=== PATIENT | female | born 1945 | race Caucasian/White ===

== ENCOUNTER → 2016-10-17 | Outpatient (CLI) | payer OTHER ==
[~2016-10-17] MED LIST: HYZAAR 12.5 MG-1 TAB PO; IRON325 M1 PO; PERCOCET 325 MG1 TA2 PO; PRILOSEC20 M2 PO; TEKTURNA300 MG PO; XANAX0.25 MG PO
== END ==
LOC: RAD 14:56
DX: R05 Cough (principal); K44.9 Diaphragmatic hernia without obstruction or gangrene; Z76.89 Persons encountering health services in other specified circumstances

== ENCOUNTER 2017-03-07 17:42 | Emergency (ER) | payer OTHER ==
[~2017-03-07] VITALS: Wt 112.5 kg
[2017-03-07 18:41] LABS: BILIRUBIN NEGATIVE (NEGATIVE); BLOOD NEGATIVE (NEGATIVE); CLARITY SL CLOUDY (CLEAR); COLOR YELLOW (YELLOW); GLUCOSE NEGATIVE (NEGATIVE); KETONE NEGATIVE (NEGATIVE); LEUKO ESTERASE NEGATIVE (NEGATIVE); NITRITE NEGATIVE (NEGATIVE); SPECIFIC GRAVITY 1.015 (1.005-1.030); UROBILINOGEN 0.2 E.U./dl (0.2-1.0)
[2017-03-07 18:46] LABS: BACTERIA 2+
[2017-03-07 18:53] LABS: HEMATOCRIT 29.8 % (37.0-47.0); HEMOGLOBIN 9.1 g/dl (12.0-16.0); MEAN CELL VOLUME 78.2 fl (81.0-99.0); MEAN CORPUSCULAR HGB 23.9 pg (27.0-31.0); MEAN CORPUSCULAR HGB CONC 30.5 g/dl (33.0-37.0); MEAN PLATELET VOLUME 10.8 fl (9.6-12.3); PLATELET COUNT AUTOMATED 357 10*3/uL (130-400); RED BLOOD COUNT 3.81 10*6/uL (4.10-5.10); RED CELL DISTRI WIDTH 14.8 % (0-14.5); WHITE BLOOD COUNT 26.4 10*3/uL (4.8-10.8)
[2017-03-07 19:03] LABS: ACT PARTIAL THROMBO TIME 22.2 SECONDS (20.8-31.5)
[2017-03-07 19:07] LABS: ALBUMIN 3.9 gm/dl (3.1-4.5); ALKALINE PHOSPHATASE 90 U/L (45-117); BUN 39 mg/dl (7-24); CHLORIDE 99 mmol/L (98-107); CREATININE 1.17 mg/dL (0.55-1.02); LIPASE 139 U/L (73-393); MAGNESIUM 2.1 mg/dL (1.5-2.1); POTASSIUM 3.5 mmol/L (3.5-5.1); SGOT/AST 17 IU/L (3-35); SGPT/ALT 33 U/L (12-78); SODIUM 139 mmol/L (136-145); TOTAL PROTEIN 6.9 gm/dL (6.4-8.2)
[2017-03-07 19:08] LABS: TROPONIN I < 0.015 ng/ml (<0.045)
[2017-03-07 19:23] LABS: BASOPHILS 3 % (0-1); TOTAL CELLS COUNTED 100 #CELLS
[2017-03-07 19:25] LABS: POLYCHROMASIA SLIGHT
[2017-03-07 19:26] LABS: MICROCYTOSIS SLIGHT; OVALOCYTES FEW; PLATELET SUFFICIENCY NORMAL (NORMAL)
== END 2017-03-07 19:51 | disposition home or self-care (01) ==
LOC: ED 17:42
PROVIDERS: Emergency Medicine
DX: R06.02 Shortness of breath (principal); Z96.653 Presence of artificial knee joint, bilateral; Z90.710 Acquired absence of both cervix and uterus

== ENCOUNTER → 2017-03-07 | Outpatient (CLI) | payer OTHER | END | disposition home or self-care (01) | LOC: RAD 12:35 | DX: R06.02 Shortness of breath (principal); R07.89 Other chest pain; I10 Essential (primary) hypertension; K44.9 Diaphragmatic hernia without obstruction or gangrene ==

== ENCOUNTER 2017-03-15 17:01 | Inpatient (IN) | payer OTHER ==
[2017-03-15] VITALS (8 sets, daily range): BP systolic 110–147; BP diastolic 39–67
[~2017-03-15] VITALS: Ht 172.7 cm; Wt 112.9 kg
--- NOTE | ~2017-03-15 | PR ---
[place], [place] PROGRESS NOTE NAME: [id number] UNIT #: [id number] ROOM: 521 DOCTOR: JO ANN CARABALLO,RICKY BIRTHDATE: [birth year] DOS: SUBJECTIVE: The patient is sitting up in bed, does not appear to have any cardiac complaint. There is no symptomatic palpitation. Reported runs of atrial fibrillation, rhythm strips were reviewed today and appear to be within normal sinus rhythm with frequent PVCs only. Heart rate with no significant change with those rhythm strips. The patient otherwise ____ well and she is awaiting a stress test in a.m. OBJECTIVE: VITAL SIGNS: Blood pressure ____, heart rate 79, respiratory rate of 14, temperature 97.8. NECK: Good upstroke. No bruit. HEART: S1, S2 with no rub. LUNGS: Clear to auscultation, slight decrease in air movement. LOWER EXTREMITIES: No significant edema. LABORATORY DATA: White count 24.5, hemoglobin 9.5. INR 1.0. Potassium 3.7. ASSESSMENT AND PLAN: Current presentation with shortness of breath and bilateral lower extremity edema in a patient with history of congestive heart failure, chronic lymphocytic leukemia. The patient had an echocardiogram, which showed normal left ventricular function with ejection fraction 60% with criteria for left ventricular hypertrophy. The patient is awaiting a stress test in a.m. with Dr. Moore. In regards to her rhythm strips which were reviewed today, there is no evidence of any runs of atrial fibrillation. For that we will stop the heparin for now. Sleep study is recommended. Exercise, weight loss is also recommended. Follow up with Dr. Moore upon discharge. RICKY CHERRY MD CM:PNTRANS [id number] RICKY CHERRY MD 03/18/17 1203 interface
[~2017-03-15 17:01] MED LIST changes: -HYZAAR 12.5 MG-1 TAB PO; +HYZAAR 50-12.51 EACH PO
[2017-03-15 17:44] LABS: HEMATOCRIT 26.3 % (37.0-47.0); HEMOGLOBIN 7.9 g/dl (12.0-16.0); MEAN CELL VOLUME 77.8 fl (81.0-99.0); MEAN CORPUSCULAR HGB 23.4 pg (27.0-31.0); MEAN PLATELET VOLUME 11.1 fl (9.6-12.3); PLATELET COUNT AUTOMATED 345 10*3/uL (130-400); RED BLOOD COUNT 3.38 10*6/uL (4.10-5.10); RED CELL DISTRI WIDTH 15.1 % (0-14.5); WHITE BLOOD COUNT 26.2 10*3/uL (4.8-10.8)
[2017-03-15 17:48] LABS: ALBUMIN 3.5 gm/dl (3.1-4.5); ALKALINE PHOSPHATASE 80 U/L (45-117); BUN 28 mg/dl (7-24); CHLORIDE 107 mmol/L (98-107); CREATININE 0.93 mg/dL (0.55-1.02); LIPASE 132 U/L (73-393); POTASSIUM 3.7 mmol/L (3.5-5.1); SGOT/AST 20 IU/L (3-35); SGPT/ALT 51 U/L (12-78); SODIUM 142 mmol/L (136-145); TOTAL PROTEIN 6.3 gm/dL (6.4-8.2)
[2017-03-15 17:50] LABS: TROPONIN I < 0.015 ng/ml (<0.045)
[2017-03-15 18:12] LABS: TOTAL CELLS COUNTED 100 #CELLS
[2017-03-15 18:13] LABS: MICROCYTOSIS SLIGHT
[2017-03-15 18:14] LABS: POLYCHROMASIA SLIGHT; TARGET CELLS FEW
[2017-03-15 18:15] LABS: DIFFERENTIAL COMMENT SMUDGE CELLS PRESENT; PLATELET SUFFICIENCY NORMAL (NORMAL)
--- NOTE | 2017-03-15 19:05 | NUR ---
NURSE TO NURSE REPORT GIVEN TO THIS RN.PT RESTING IN BED.PT AWAITING TRANSPORT TO .
--- NOTE | 2017-03-15 19:16 | NUR ---
PT VITALS REASSESSED.PT RESTING COMFORTABLY IN BED AT THIS TIME.PT DENIES CHEST PAIN AT THIS TIME.PT UPDATED ON CURRENT PLAN OF CARE.
--- NOTE | 2017-03-15 19:42 | NUR ---
A 71, admitted to , under the services of NAUN King DO with a diagnosis of CHF. Chief complaint is SOB EDEMA LOWER EXTREMITIES. Patient arrived via stretcher from ER. Monitor applied. Initial assessment completed. Vital signs taken and recorded. NAUN KING DO notified of admission to the unit. Orders received. See assessment for past medical history, medications and allergies. Patient and/or family oriented to unit. [facility] visitation policy reviewed. Clothing/patient valuable form completed. [facility]
--- NOTE | 2017-03-15 20:00 | NUR ---
DR BAUTISTA HERE TO SEE PATIENT AND DISCUSS PLAN OF CARE
--- NOTE | 2017-03-15 20:10 | NUR ---
REVIEWED MED LIST WITH PATIENT AND VISITOR.
[2017-03-15] MEDS ORDERED: CIPRO500 MG PO (20:33)
[2017-03-15] MEDS ORDERED: NORVASC2.5 MG PO (20:35)
[2017-03-15] MEDS ORDERED: LASIX40 MG PO (20:37)
[2017-03-15] MEDS ORDERED: K-TAB10 MEQ PO (20:37)
[2017-03-15] MEDS ORDERED: ASPIR LOW81 MG PO (20:38)
[2017-03-15] MEDS ORDERED: METFORMIN500 MG PO (20:39)
[2017-03-15] MEDS ORDERED: VITAMIN D31000 UNI1 PO (20:39)
--- NOTE | 2017-03-15 20:42 | NUR ---
PATIENT REFUSED MARCUS ALBARRAN.
--- NOTE | 2017-03-15 21:20 | NUR ---
DR. WELLS NOTIFIED OF CONSULT PER ORDER. WILL SEE PATIENT IN AM
--- NOTE | 2017-03-15 22:15 | NUR ---
UNIT OF BLOOD STARTING TO TRANSFUSE.
--- NOTE | 2017-03-16 01:00 | NUR ---
TRANSFUSION OF THE FIRST UNIT OF BLOOD COMPLETED.
[2017-03-16 06:18] LABS: HEMATOCRIT 27.4 % (37.0-47.0); HEMOGLOBIN 8.5 g/dl (12.0-16.0); MEAN CELL VOLUME 78.1 fl (81.0-99.0); MEAN CORPUSCULAR HGB 24.2 pg (27.0-31.0); MEAN PLATELET VOLUME 11.4 fl (9.6-12.3); NUCLEATED RED BLOOD CELL 0.1 % (0.0-0.0); PLATELET COUNT AUTOMATED 278 10*3/uL (130-400); RED BLOOD COUNT 3.51 10*6/uL (4.10-5.10); RED CELL DISTRI WIDTH 15.4 % (0-14.5); WHITE BLOOD COUNT 20.9 10*3/uL (4.8-10.8)
[2017-03-16 06:24] LABS: ALBUMIN 3.2 gm/dl (3.1-4.5); ALKALINE PHOSPHATASE 74 U/L (45-117); BUN 24 mg/dl (7-24); CHLORIDE 103 mmol/L (98-107); CHOLESTEROL 133 mg/dL (<200); CREATININE 0.96 mg/dL (0.55-1.02); HDL CHOLESTEROL 35 mg/dl (40-60); IRON 48 ug/dL (50-170); LDL CHOLESTEROL 75 mg/dL (9-159); PHOSPHOROUS 3.6 mg/dL (2.5-4.9); POTASSIUM 3.2 mmol/L (3.5-5.1); SGOT/AST 20 IU/L (3-35); SGPT/ALT 46 U/L (12-78); SODIUM 141 mmol/L (136-145); TOTAL IRON BINDING CAPACITY 396 ug/dl (250-450); TOTAL PROTEIN 5.6 gm/dL (6.4-8.2); TRIGLYCERIDES 113 mg/dl (<150); VLDL CHOLESTEROL 23 mg/dL (6-40)
[2017-03-16 06:30] LABS: FREE T4 1.01 ng/dl (0.76-1.46)
[2017-03-16 06:39] LABS: ACT PARTIAL THROMBO TIME 22.9 SECONDS (20.8-31.5); INTERNATIONAL NORM RATIO 1.1 (2.0-3.5)
[2017-03-16 06:47] LABS: TOTAL CELLS COUNTED 100 #CELLS
[2017-03-16 06:49] LABS: MICROCYTOSIS SLIGHT; PLATELET SUFFICIENCY NORMAL (NORMAL); ROULEAUX SLIGHT
[2017-03-16 08:00] VITALS: BP 119/54; BP 128/72
--- NOTE | 2017-03-16 08:00 | NUR ---
HOB ELEVATED, EASY RESPIRATIONS WITH SKIN W/D. PT DENIES C/O S.O.B AT PRESENT TIME. DENIES CHEST PAIN. STATES "FEELING ALOT BETTER" CALL LIGHT SYSTEM REINFORCED FOR ASSISTANCE. SEE SHIFT ASSESSMENT.
--- NOTE | 2017-03-16 09:24 | NUR ---
Warehouse Freight Handler in to talk to patient. Patient states lives at home with . There are few steps in the home. Physician: carol moses [facility] Home health services: none Patient's level of ADLs: INDEPENDENT Patient has working utilities: all working DME: none Follow-up physician's appointment after d/c: will be made by hospitalist nurse director upon discharge Does patient want to access PORTAL?: no Discharge plan discussed with patient, patient lives at home, is independent in adls and ambulation, drives, patient will be going back home when able and denies any home needs. DELVIN SALMON
--- NOTE | 2017-03-16 10:54 | NUR ---
RESTING COMFORTABLY WITH NO VOICED C/O OFFERED.
--- NOTE | 2017-03-16 11:31 | NUR ---
AT PTS REQUEST & AFTER OBTAINING SIGNED CONSENT, ALL LABS & REPORTS WERE FAXED TO DR KAMINSKI, HER ONCOLOGIST. SPOKE WITH HERNESTO AT 'S OFFICE TO INFORM THAT PAPERWORK IS BEING FAXED.
[2017-03-16 12:00] VITALS: BP 144/58
--- NOTE | 2017-03-16 12:54 | NUR ---
DR WELLS IN TO SEE PT.
[2017-03-16 16:00] VITALS: BP 155/67
[2017-03-16 20:00] VITALS: BP 136/58
--- NOTE | 2017-03-16 23:00 | NUR ---
PT PLACED ON NOCTURNAL PULSE OX PER DOCTORS'S ORDERS
[2017-03-17] VITALS: BP 109/49
[2017-03-17 06:06] LABS: HEMOGLOBIN 8.5 g/dl (12.0-16.0); MEAN CELL VOLUME 78.2 fl (81.0-99.0); MEAN CORPUSCULAR HGB 23.7 pg (27.0-31.0); MEAN CORPUSCULAR HGB CONC 30.4 g/dl (33.0-37.0); MEAN PLATELET VOLUME 11.2 fl (9.6-12.3); PLATELET COUNT AUTOMATED 278 10*3/uL (130-400); RED BLOOD COUNT 3.58 10*6/uL (4.10-5.10); RED CELL DISTRI WIDTH 15.6 % (0-14.5); WHITE BLOOD COUNT 19.6 10*3/uL (4.8-10.8)
[2017-03-17 06:33] LABS: BUN 25 mg/dl (7-24); CHLORIDE 105 mmol/L (98-107); CREATININE 0.79 mg/dL (0.55-1.02); SODIUM 140 mmol/L (136-145)
[2017-03-17 06:50] LABS: ATYPICAL LYMPHS 1 % (0-0); POLYCHROMASIA SLIGHT; TOTAL CELLS COUNTED 100 #CELLS
[2017-03-17 06:51] LABS: MICROCYTOSIS SLIGHT
[2017-03-17 06:52] LABS: PLATELET SUFFICIENCY NORMAL (NORMAL)
[2017-03-17 08:00] VITALS: BP 128/58
[2017-03-17 11:55] VITALS: BP 136/59
--- NOTE | 2017-03-17 14:45 | NUR ---
PT UP WALKING HALLS WITH FRIEND. TOLERATING WELL.
[2017-03-17 16:00] VITALS: BP 122/81
--- NOTE | 2017-03-17 16:15 | NUR ---
WHEN ASSESSING THE PT, PT VOICED CONCERN ABOUT BILAT LOWER LEG PAIN. PAIN STARTED ON 03/16/17 BUT WAS FIRST REPORTED TO THIS NURSE ON 03/17/17 AT THIS TIME. PAIN COMES ON WHEN PRESSURE IS APPLIED ONLY. PAIN IS LOCATED BETWEEN THE KNEE AND ANKLE BILAT. PER PT, PAIN IS NOT GREAT ENOUGH FOR PT TO NEED PAIN MEDICATION. TRACE EDEMA NOTED IN BILAT LOWER EXTREMITIES. NO WARMTH NOTED IN EITHER LEGS. BOTH ARE PALE TO PINK IN COLOR. PEDAL PULSES 2+ NORMAL. TRIED TO CALL MULTIPLE TIMES, CALLED TO REPORT.
[2017-03-17 20:00] VITALS: BP 123/64
[2017-03-18] VITALS: BP 104/56
--- NOTE | 2017-03-18 01:32 | NUR ---
C/O 5/10 PAIN TO BLE. MEDICATED WITH NORCO ORDERED AND PER PATIENT REQUEST.
--- NOTE | 2017-03-18 01:34 | NUR ---
MEDICATED WITH NORCO FOR C/O 5/10 BLE PAIN.
--- NOTE | 2017-03-18 03:00 | NUR ---
PT GIVEN NORCO FOR PAIN IN LEGS. WILL CONINUE TO MONITOR.
[2017-03-18 05:47] LABS: BUN 24 mg/dl (7-24); CHLORIDE 105 mmol/L (98-107); CREATININE 0.86 mg/dL (0.55-1.02); POTASSIUM 3.7 mmol/L (3.5-5.1); SODIUM 139 mmol/L (136-145)
--- NOTE | 2017-03-18 06:45 | NUR ---
NOTIFIED OF SHORT RUN OF A-FIB. ORDERS ARE EKG STAT, HEP BOLUS, HEP DRIP FOR DVT PROPH. ECHO HAS BEEN RECCOMNDED BUT ALREADY HAS BEEN COMPLETED. WILL CALL LATER FOR FURTHER INSTRUCTION. CARDIOLOGY HAS BEEN NOTIFIED.
--- NOTE | 2017-03-18 07:35 | NUR ---
CALLED CARDIOLOGY OF SHORT RUN A AFIB. TOLD THEM ORDERS PER GARY. AGREED WITH ORDERS.
--- NOTE | 2017-03-18 07:36 | NUR ---
CALLED DR. DOWLING FOR NOT DOING SECOND ECHO CARDIOGRAM DUE TO RECENT COMPLETEION OF ONE. HE AGREED ON NOT DOING SECOND. ORDER HAS NOT BEEN COMPLETED.
[2017-03-18 07:37] VITALS: BP 139/39
[2017-03-18 07:42] LABS: HEMATOCRIT 31.6 % (37.0-47.0); HEMOGLOBIN 9.5 g/dl (12.0-16.0); MEAN CELL VOLUME 77.8 fl (81.0-99.0); MEAN CORPUSCULAR HGB 23.4 pg (27.0-31.0); MEAN CORPUSCULAR HGB CONC 30.1 g/dl (33.0-37.0); MEAN PLATELET VOLUME 10.7 fl (9.6-12.3); NUCLEATED RED BLOOD CELL 0.1 % (0.0-0.0); PLATELET COUNT AUTOMATED 336 10*3/uL (130-400); RED BLOOD COUNT 4.06 10*6/uL (4.10-5.10); RED CELL DISTRI WIDTH 15.7 % (0-14.5); WHITE BLOOD COUNT 22.5 10*3/uL (4.8-10.8)
[2017-03-18 07:54] LABS: ACT PARTIAL THROMBO TIME 22.7 SECONDS (20.8-31.5)
[2017-03-18 08:01] LABS: ATYPICAL LYMPHS 1 % (0-0); MICROCYTOSIS SLIGHT; PLATELET SUFFICIENCY NORMAL (NORMAL); TOTAL CELLS COUNTED 100 #CELLS
[2017-03-18 08:02] LABS: POLYCHROMASIA SLIGHT
--- NOTE | 2017-03-18 08:03 | NUR ---
DR. DOWLING IN TO SEE PT.
--- NOTE | 2017-03-18 11:20 | NUR ---
DR. RICHARD, RADIATION MONITOR, IN TO SEE PT.
--- NOTE | 2017-03-18 12:05 | NUR ---
PT REQUESTED TO HAVE HER PEDAL PULSES AUSCULTATED WITH DOPPLER. PEDAL PULSES BILAT AUSCULTATED. BOTH FOUND TO BE STRONG.
[2017-03-18 16:00] VITALS: BP 135/54
--- NOTE | 2017-03-18 18:03 | NUR ---
PT IN BED, WATCHING TV. LUNGS STILL DIMINISHED BUT LESS THAN IN THE AM. PT BLE EDEMA HAS DECREASED. TRACE PITTING EDEMA NOTED BILAT. PT HAS BEEN UP WALKING HALLS TODAY SEVERAL TIMES THROUGH THE DAY. PT DENIES PAIN, NAUSEA, VOMITING, DIARRHEA AT THIS TIME.
--- NOTE | 2017-03-18 19:36 | NUR ---
PATIENT AWAKE IN BED AT THIS TIME, ALERT AND ORIENTED X3. PATIENT DENIES ANY CHEST PAIN, SOB, OR GENERALIZED DISCOMFORT. STATES SHE HAS BEEN UP TO AMBULATE IN THE HALLWAY ALL DAY- 9 LAPS TOTAL. STATES SHE WANTS TO GET TO 10 LAPS BEFORE SHE GOES TO BED. PATIENT ENCOURAGED TO AMBULATE USING NON-SKID FOOTWEAR AND TO CALL FOR ASSISTANCE W/ WALKING IF FEELING SOB OR DIZZY. PATIENT DENIES ANY SOB/DIZZINESS AT PRESENT TIME. WILL MONITOR. CALL LIGHT LEFT IN REACH.
[2017-03-18 20:00] VITALS: BP 155/77
[2017-03-19] VITALS: BP 120/50
--- NOTE | 2017-03-19 02:11 | NUR ---
PATIENT RESTING QUIETLY IN BED WITH EYES CLOSED. NO S/S OF DISTRESS NOTED. ON ROOM AIR. WILL MONITOR. CALL LIGHT IN REACH.
[2017-03-19 06:02] LABS: BUN 27 mg/dl (7-24); CHLORIDE 106 mmol/L (98-107); CREATININE 0.84 mg/dL (0.55-1.02); POTASSIUM 3.8 mmol/L (3.5-5.1); SODIUM 142 mmol/L (136-145)
[2017-03-19 06:16] LABS: HEMATOCRIT 28.5 % (37.0-47.0); HEMOGLOBIN 8.6 g/dl (12.0-16.0); MEAN CELL VOLUME 78.9 fl (81.0-99.0); MEAN CORPUSCULAR HGB 23.8 pg (27.0-31.0); MEAN CORPUSCULAR HGB CONC 30.2 g/dl (33.0-37.0); MEAN PLATELET VOLUME 10.9 fl (9.6-12.3); PLATELET COUNT AUTOMATED 274 10*3/uL (130-400); RED BLOOD COUNT 3.61 10*6/uL (4.10-5.10); RED CELL DISTRI WIDTH 15.9 % (0-14.5); WHITE BLOOD COUNT 17.2 10*3/uL (4.8-10.8)
[2017-03-19 06:43] LABS: BASOPHILS 3 % (0-1); TOTAL CELLS COUNTED 100 #CELLS
[2017-03-19 06:44] LABS: MICROCYTOSIS SLIGHT; PLATELET SUFFICIENCY NORMAL (NORMAL)
[2017-03-19 08:00] VITALS: BP 122/50
--- NOTE | 2017-03-19 08:00 | NUR ---
RESTING QUIETLY NO C/O NO DISTRESS NOTED. STATES SHE IS FEELING BETTER. NPO FOR STRESS TEST THIS AM. WILL CONTINUE TO MONITOR.
--- NOTE | 2017-03-19 08:54 | NUR ---
TO CARDIAC REHAB FOR STRESS TEST VIA WHEELCHAIR.
--- NOTE | 2017-03-19 09:00 | NUR ---
case management attempted to visit with patient, patient out of room at this time
--- NOTE | 2017-03-19 10:20 | NUR ---
INFORMED CONSENT SIGNED FOR CARDIOLYTE STRESS TEST WITH DR. WELLS. RESTING EKG NSR, HR 79, BP 120/64. COMPLETED 4:49 OF A NEO PROTOCOL. ENTERED STAGE II BUT IMMEDITATELY DECREASED TO 2.2 MPH, FOLLOWED BY A DECREASE TO 1.6 MPH/5% GRADE THEN 1.3 MPH/2.5% GRADE BEFORE ENDING TEST. TEST TERMINATED D/T FATIGUE AND SOB. PEAK HEART RATE OF 129 ACHIEVED WHICH IS 86% PREDICTED MAXIMUM AND A PEAK BP OF 174/62. HAS A FAIR/AVERAGE EXERCISE TOLERANCE. WAITING NUCLEAR SCANNING IN STABLE CONDITION.
--- NOTE | 2017-03-19 10:53 | NUR ---
RETURNED TO ROOM FROM STRESS TEST.
[2017-03-19 12:00] VITALS: BP 142/44
--- NOTE | 2017-03-19 12:21 | NUR ---
Nutritional Support Services Note: Discussing with pt 1600cal diabetic, cardiac diet. Diet copy given to pt. All questions were answered. She has a good understanding of the diet and the need for compliance. Will follow as needed. Mady Hall
[2017-03-19 16:00] VITALS: BP 120/80
[2017-03-19] MEDS ORDERED: ALDACTONE25 MG PO (16:05)
--- NOTE | 2017-03-19 17:54 | NUR ---
DISCHARGED TO HOME IN CARE OF FRIEND. INSTRUCTIONS AND PERSCRIPTIONS REVIEWED WITH PT.
== END 2017-03-19 17:54 | disposition home or self-care (01) | DRG 292 ==
LOC: ED 17:01 → 5E 18:42 → EDHOLD 18:42 → 5E 18:43
PROVIDERS: Internal Medicine; Nurse Practitioner Family; ADMIT Internal Medicine
PROC: 30233N1 Transfusion of Nonautologous Red Blood Cells into Peripheral Vein, Percutaneous Approach (ICD-10-PCS; principal; 2017-03-15)
PROC: 4A02XM4 Measurement of Cardiac Total Activity, External Approach (ICD-10-PCS; 2017-03-19)
DX: I11.0 Hypertensive heart disease with heart failure (principal); C91.10 Chronic lymphocytic leukemia of B-cell type not having achieved remission; E88.09 Other disorders of plasma-protein metabolism, not elsewhere classified; N30.00 Acute cystitis without hematuria; E11.9 Type 2 diabetes mellitus without complications; D50.9 Iron deficiency anemia, unspecified; Z96.653 Presence of artificial knee joint, bilateral; Z96.629 Presence of unspecified artificial elbow joint; I50.33 Acute on chronic diastolic (congestive) heart failure; Z79.01 Long term (current) use of anticoagulants; Z79.82 Long term (current) use of aspirin; Z79.84 Long term (current) use of oral hypoglycemic drugs; Z79.899 Other long term (current) drug therapy; Z87.81 Personal history of (healed) traumatic fracture; Z80.3 Family history of malignant neoplasm of breast; Z83.3 Family history of diabetes mellitus; Z82.49 Family history of ischemic heart disease and other diseases of the circulatory system; Z98.42 Cataract extraction status, left eye; Z98.41 Cataract extraction status, right eye; Z90.710 Acquired absence of both cervix and uterus; Z90.49 Acquired absence of other specified parts of digestive tract; Z87.891 Personal history of nicotine dependence; Z81.8 Family history of other mental and behavioral disorders; Z84.89 Family history of other specified conditions

== ENCOUNTER → 2017-08-06 | Outpatient (CLI) | payer OTHER ==
[~2017-08-06] MED LIST changes: +ALDACTONE25 MG PO; +ASPIR LOW81 MG PO; +CIPRO500 MG PO; +HYZAAR 100-12.1 EACH PO; -HYZAAR 50-12.51 EACH PO; +IRON240 MG PO; +K-TAB10 MEQ PO; +LASIX40 MG PO; +METFORMIN500 MG PO; +NORVASC2.5 MG PO; +VITAMIN D31000 UNI1 PO
== END | disposition home or self-care (01) ==
LOC: CT 08:56
DX: K44.9 Diaphragmatic hernia without obstruction or gangrene (principal); C95.90 Leukemia, unspecified not having achieved remission

== ENCOUNTER → 2017-09-12 | Day surgery (SDC) | payer OTHER ==
[~2017-09-12] VITALS: Ht 170.1 cm; Wt 104.3 kg
[~2017-09-12] MED LIST changes: +GLIPIZIDE XL5 M1 PO
--- NOTE | ~2017-09-12 | O ---
[place], [place] OPERATIVE NOTE NAME: [facility] [id number] UNIT #: [id number] ROOM: DOCTOR: CURT CARABALLORC BIRTHDATE: [birth year] DOS: 09/12/2017 GASTROENDOSCOPIC REPORT INDICATIONS: A 71-year-old patient who was presented with anemia, undergoing investigation. The patient has been seen by Dr. Lester Gallardo, he is in [facility]. She is on aspirin product. PAST MEDICAL HISTORY: Associated with hypertension, history of congestive heart failure, and diabetes mellitus. SOCIAL HISTORY: Nonsmoker and nonalcohol consumer. FAMILY HISTORY: Noncontributory. ALLERGIES: No known medication. PAST SURGICAL HISTORY: Cholecystectomy, hysterectomy, and total bilateral knee prosthesis. PROCEDURE: Today's procedure part of investigation is panendoscopy and colonoscopy. PREMEDICATION: Propofol. SCOPE: Olympus forward-viewing gastroscope Q10 video. REPORT: After putting the patient in left lateral position and application of lubricant to the scope, the scope was introduced. Thereafter, under direct visualization, advanced through the length of esophagus without difficulty. There is a large hiatal hernia and Gastric pouch was entered. Evidence of gastritis was noticed. Antral biopsy was obtained. Duodenal bulb, second and third part within normal limit. Scope was withdrawn back to the gastric pouch. Two small angiodysplastic lesions were identified. These were gold heater probe coagulated and photographic series from the event was obtained. GI reflection of a scope reveals cardia to be benign. Scope was gradually withdrawn. Air was suctioned out. The patient was extubated and tolerated procedure well. IMPRESSION: EGD. 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 PLAN AND DISCUSSION: With holding the aspirin for next 4 days and we are going to proceed continuation with PPI management. She is already on iron supplementation that may make her stool dark and therefore difficult to grossly assess if it is bleeding or not, but the patient is a nurse. She is aware of possible adverse events, i.e., GI bleed. Status post coagulation and biopsy. I am going to start her on omeprazole 40 mg one daily and clinical reassessment. [place], [place] OPERATIVE NOTE NAME: FAIZAN DE LEON UNIT #: [id number] ROOM: DOCTOR: CURT CARABALLO,RC BIRTHDATE: [birth year] GASTROENDOSCOPIC REPORT INDICATION: The patient has presented with anemia, undergoing investigation. PROCEDURE: Today's procedure part of investigation colonoscopy. PREMEDICATION: Propofol. SCOPE: Olympus folding colonoscope 10L video. REPORT: After putting the patient in left lateral position and application of lubricant to the scope. The scope was introduced. Thereafter, under direct visualization, I advanced through the length of colon with difficulty. Difficulty being significant angulation of sigmoid colon as well as presence of severe diverticulosis mostly occupying the sigmoid colon as well as benign stricture secondary to severe diverticular investigation. However, this overcame with appropriate maneuvers. The scope was negotiated to the right colon and cecum and no acute pathology was identified. Air was suctioned out. The patient gradually was slowly was extubated, tolerated procedure well. IMPRESSION: Severe diverticulosis mostly in sigmoid colon, benign stricture of sigmoid colon, severe angulation and tortuosity of the sigmoid colon. PLAN AND DISCUSSION: The source of GI bleed and blood loss, mostly is an upper GI tract as identified above including AVMs, gastritis and being on antiplatelets. Periodic checkup on H and the patient is going to be started on PPI for her upper GI findings. I thank you very much indeed for your kind referral. RC ELIAS MD CM:OPRECORD:OPERATIVE NOTE [id number] RC ELIAS MD 09/13/17 1146 interface
[2017-09-12 07:11] VITALS: BP 106/43
[2017-09-12 08:27] VITALS: BP 82/39
[2017-09-12 08:41] VITALS: BP 107/36
[2017-09-12 08:59] VITALS: BP 109/32
== END | disposition home or self-care (01) ==
LOC: SDC 07-13 15:30
DX: K29.50 Unspecified chronic gastritis without bleeding (principal); K44.9 Diaphragmatic hernia without obstruction or gangrene; K31.89 Other diseases of stomach and duodenum; K57.30 Diverticulosis of large intestine without perforation or abscess without bleeding; Z90.49 Acquired absence of other specified parts of digestive tract; Z90.710 Acquired absence of both cervix and uterus; I11.0 Hypertensive heart disease with heart failure; I50.9 Heart failure, unspecified; K56.699 Other intestinal obstruction unspecified as to partial versus complete obstruction; K63.89 Other specified diseases of intestine; K21.9 Gastro-esophageal reflux disease without esophagitis; E11.9 Type 2 diabetes mellitus without complications; Z83.3 Family history of diabetes mellitus; Z82.49 Family history of ischemic heart disease and other diseases of the circulatory system; Z79.82 Long term (current) use of aspirin

== ENCOUNTER → 2017-10-18 | Outpatient (CLI) | payer OTHER | END | disposition home or self-care (01) | LOC: LAB 13:35 | DX: R53.83 Other fatigue (principal); D64.9 Anemia, unspecified ==

== ENCOUNTER → 2018-03-13 | Outpatient (CLI) | payer OTHER | END | disposition home or self-care (01) | LOC: MAMMO 14:13 | DX: Z12.31 Encounter for screening mammogram for malignant neoplasm of breast (principal) ==

== ENCOUNTER → 2019-01-01 | Outpatient (CLI) | payer OTHER | END | disposition home or self-care (01) | LOC: CARD 07:20 | DX: I11.0 Hypertensive heart disease with heart failure (principal); I50.9 Heart failure, unspecified; Z79.899 Other long term (current) drug therapy ==

== ENCOUNTER → 2019-01-17 | Outpatient (CLI) | payer OTHER ==
[2019-01-17 14:38] LABS: HEMATOCRIT 42.4 % (37.0-47.0); HEMOGLOBIN 13.9 g/dl (12.0-16.0); MEAN CELL VOLUME 87.2 fl (81.0-99.0); MEAN CORPUSCULAR HGB 28.6 pg (27.0-31.0); MEAN CORPUSCULAR HGB CONC 32.8 g/dl (33.0-37.0); MEAN PLATELET VOLUME 10.4 fl (9.6-12.3); PLATELET COUNT AUTOMATED 288 10*3/uL (130-400); RED BLOOD COUNT 4.86 10*6/uL (4.10-5.10); RED CELL DISTRI WIDTH 13.2 % (0-14.5); WHITE BLOOD COUNT 17.1 10*3/uL (4.8-10.8)
[2019-01-17 15:00] LABS: TOTAL CELLS COUNTED 100 #CELLS
[2019-01-17 15:01] LABS: BURR CELLS FEW; PLATELET SUFFICIENCY NORMAL (NORMAL)
[2019-01-17 15:16] LABS: ALBUMIN 3.9 gm/dl (3.1-4.5); CREATININE 1.98 mg/dL (0.55-1.02); POTASSIUM 3.9 mmol/L (3.5-5.1); TOTAL PROTEIN 7.3 gm/dL (6.4-8.2)
[2019-01-17 15:23] LABS: THYROID STIM HORMONE (HS) 3.43 uIU/ml (0.358-4.75)
== END | disposition home or self-care (01) ==
LOC: LAB 14:11
PROVIDERS: Internal Medicine Cardiovascular Disease
DX: I11.0 Hypertensive heart disease with heart failure (principal); I50.9 Heart failure, unspecified

== ENCOUNTER → 2019-01-30 | Outpatient (CLI) | payer OTHER ==
--- NOTE | ~2019-01-30 | PF ---
[place], [place] PULMONARY FUNCTION TEST NAME[facility]: [id number] UNIT #: [id number] ROOM: DOCTOR: ANABELLA LEDESMA MD,JASON BIRTHDATE: [birth year] DOS: 01/30/2019 ORDERED BY: Dr. Kyle Irvin. HISTORY: The patient recorded as 73-year-old female, height of 67 inches, weight of 240 pounds. Testing was done for assessment of symptoms of shortness of breath and nonproductive cough. The patient was noted tobacco use, 2 packs of cigarettes per day for 10 years. Tobacco cessation reported 31 years ago. SPIROMETRY: The FVC was recorded 2.26 liters, 73% predicted value. The FEV1 was recorded at 1.94 liters, 82% predicted value. Ratio of FEV1/FVC recorded 86%. Flow volume loop was essentially noted as normal except somewhat limited inspiratory flow volume loop. LUNG VOLUME: Thoracic gas volume recorded as 43%, residual volume 50%, total lung capacity 78%, lung diffusion recorded 63%, mildly decreased without correction of carbon monoxide, hemoglobin values. The patient's airway resistance and passive conductance were noted as normal. FINAL IMPRESSION: The test was currently noted with finding suggestive of mild restrictive lung disease. Clinical correlation would be advised, radiology data and the history. JASON KYLE MD CM:PFREPORT:PULMONARY FUNCTION TEST [id number] JASON LEDESMA MD
== END | disposition home or self-care (01) ==
LOC: PHASE II 15:50 → PULMREHAB 15:50 → CP 15:50
DX: I50.9 Heart failure, unspecified (principal); J98.4 Other disorders of lung; R06.02 Shortness of breath; R05 Cough; Z72.0 Tobacco use

== ENCOUNTER → 2019-05-19 | Outpatient (CLI) | payer OTHER ==
[2019-05-19 08:57] LABS: ALBUMIN 3.9 gm/dl (3.1-4.5); CREATININE 1.96 mg/dL (0.55-1.02); POTASSIUM 3.8 mmol/L (3.5-5.1)
[2019-05-19 08:59] LABS: TOTAL PROTEIN 6.8 gm/dL (6.4-8.2)
[2019-05-19 10:21] LABS: VITAMIN D, 25-HYDROXY 47.5 ng/mL (30-100)
[2019-05-20 12:04] LABS: CREATININE,URINE 25.4 mg/dL (Not Estab.); MICRO ALBUMIN/CRE RATIO <11.8 (0.0-30.0)
== END | disposition home or self-care (01) ==
LOC: LAB 08:04 → MAMMO 08:30
PROVIDERS: Internal Medicine
DX: Z12.31 Encounter for screening mammogram for malignant neoplasm of breast (principal); E11.65 Type 2 diabetes mellitus with hyperglycemia; E55.9 Vitamin D deficiency, unspecified; G62.9 Polyneuropathy, unspecified

== ENCOUNTER → 2019-05-27 | Outpatient (CLI) | payer OTHER ==
[2019-05-27 13:15] LABS: HEMATOCRIT 39.8 % (37.0-47.0); HEMOGLOBIN 12.6 g/dl (12.0-16.0); MEAN CELL VOLUME 92.1 fl (81.0-99.0); MEAN CORPUSCULAR HGB 29.2 pg (27.0-31.0); MEAN CORPUSCULAR HGB CONC 31.7 g/dl (33.0-37.0); MEAN PLATELET VOLUME 10.9 fl (9.6-12.3); PLATELET COUNT AUTOMATED 263 10*3/uL (130-400); RED BLOOD COUNT 4.32 10*6/uL (4.10-5.10); WHITE BLOOD COUNT 19.5 10*3/uL (4.8-10.8)
[2019-05-27 13:37] LABS: PLATELET SUFFICIENCY NORMAL (NORMAL); TOTAL CELLS COUNTED 100 #CELLS
== END | disposition home or self-care (01) ==
LOC: LAB 12:40
PROVIDERS: Internal Medicine Cardiovascular Disease
DX: I50.9 Heart failure, unspecified (principal)

== ENCOUNTER → 2020-03-05 | Outpatient (CLI) | payer MEDICARE | END | disposition home or self-care (01) | LOC: RAD 10:20 | PROVIDERS: ATTEND Nurse Practitioner Primary Care | DX: Z78.0 Asymptomatic menopausal state (principal) ==

== ENCOUNTER 2020-04-06 16:08 | Observation (INO) | payer OTHER ==
[2020-04-06 16:19] VITALS: BP 139/67
[2020-04-06 17:08] LABS: BASO % 0.2 % (0.0-1.0); EOS % 0.1 % (1.0-4.0); HEMATOCRIT 40.6 % (37.0-47.0); LYMPH # 2.7 10*3/uL (1.3-4.4); LYMPH % 24.1 % (27.0-41.0); MEAN CELL VOLUME 89.4 fl (81.0-99.0); MEAN CORPUSCULAR HGB 28.4 pg (27.0-31.0); MEAN CORPUSCULAR HGB CONC 31.8 g/dl (33.0-37.0); MEAN PLATELET VOLUME 11.4 fl (9.6-12.3); MONO # 0.8 10*3/uL (0.1-1.0); MONO % 7.2 % (3.0-9.0); NEUT # 7.7 10*3/uL (2.3-7.9); NEUT % 67.9 % (47.0-73.0); PLATELET COUNT AUTOMATED 175 10*3/uL (130-400); RED BLOOD COUNT 4.54 10*6/uL (4.10-5.10); RED CELL DISTRI WIDTH 14.6 % (0-14.5); WHITE BLOOD COUNT 11.4 10*3/uL (4.8-10.8)
[2020-04-06 17:20] LABS: ACT PARTIAL THROMBO TIME 27.1 SECONDS (20.0-32.1)
[2020-04-06 17:27] LABS: ALBUMIN 3.1 gm/dl (3.1-4.5); ALKALINE PHOSPHATASE 72 U/L (45-117); BUN 46 mg/dl (7-24); CHLORIDE 105 mmol/L (98-107); LDH 321 U/L (84-246); POTASSIUM 4.1 mmol/L (3.5-5.1); SGOT/AST 34 IU/L (3-35); SGPT/ALT 31 U/L (12-78); SODIUM 136 mmol/L (136-145); TOTAL PROTEIN 6.6 gm/dL (6.4-8.2)
[2020-04-06 17:29] LABS: TROPONIN I < 0.015 ng/ml (<0.045)
[2020-04-06] MEDS ORDERED: LOSARTAN POTASS50 M1 PO (19:07)
[2020-04-06] MEDS ORDERED: REPAGLINIDE0.5 M1 PO (19:08)
[2020-04-06] MEDS ORDERED: IMDUR SA60 M1 PO (19:08)
[2020-04-06] MEDS ORDERED: BUMETANIDE2 MG PO (19:09)
[2020-04-06] MEDS ORDERED: ATORVASTATIN CA20 M1 PO (19:09)
[2020-04-06] MEDS ORDERED: POTASSIUM CHLO10 ME5 PO (19:10)
--- NOTE | 2020-04-06 19:44 | NUR ---
HOME MEDS WERE VERIFIED WITH THE PATIENT
--- NOTE | 2020-04-06 20:31 | NUR ---
THE IV IN THE RIGHT AC INFILTRATED.
--- NOTE | 2020-04-06 21:06 | NUR ---
IV IN RIGHT AC HAS BEEN D/C'D DUE TO INFILTRATION. KATHERINE FAIR RN.
[2020-04-06 21:21] VITALS: BP 110/48
[2020-04-07 02:04] VITALS: BP 112/56
--- NOTE | 2020-04-07 04:20 | NUR ---
PT RESTING IN BED WITH EYES CLOSED. RESPIRATIONS EASY AND REGULAR.
[2020-04-07 06:00] LABS: BASO % 0.2 % (0.0-1.0); EOS # 0.2 10*3/uL (0.0-0.4); EOS % 2.1 % (1.0-4.0); HEMATOCRIT 34.9 % (37.0-47.0); LYMPH % 35.3 % (27.0-41.0); MEAN CORPUSCULAR HGB 28.3 pg (27.0-31.0); MEAN CORPUSCULAR HGB CONC 31.8 g/dl (33.0-37.0); MEAN PLATELET VOLUME 11.5 fl (9.6-12.3); MONO # 0.8 10*3/uL (0.1-1.0); MONO % 9.9 % (3.0-9.0); NEUT # 4.4 10*3/uL (2.3-7.9); NEUT % 52.1 % (47.0-73.0); PLATELET COUNT AUTOMATED 142 10*3/uL (130-400); RED BLOOD COUNT 3.92 10*6/uL (4.10-5.10); RED CELL DISTRI WIDTH 14.6 % (0-14.5); WHITE BLOOD COUNT 8.5 10*3/uL (4.8-10.8)
[2020-04-07 06:04] LABS: ALBUMIN 2.4 gm/dl (3.1-4.5); CREATININE 1.34 mg/dL (0.55-1.02); POTASSIUM 3.3 mmol/L (3.5-5.1); TOTAL PROTEIN 5.4 gm/dL (6.4-8.2)
[2020-04-07 06:15] VITALS: BP 112/58
--- NOTE | 2020-04-07 06:32 | NUR ---
PT BED AND GOWN CHANGED PER PT REQUEST
--- NOTE | 2020-04-07 07:05 | NUR ---
PATIENT REPORT FROM TEDDY CARDOSO AT THIS TIME.
--- NOTE | 2020-04-07 07:46 | NUR ---
A BSG WAS OBTAINED AND THE PATIENTS BREAKFAST WAS ORDERED. SHE IS RESTING ON THE BED. CALL LIGHT IS WITHIN REACH
--- NOTE | 2020-04-07 12:24 | NUR ---
THE PATIENT RECIEVED HER LUNCH TRAY.
[2020-04-07] MEDS ORDERED: DOXYCYCLINE100 M3 PO (12:27)
--- NOTE | 2020-04-07 12:37 | NUR ---
I TALKED WITH CRM COORDINATOR AND THEY SAID THEY WOULD NOT BE DOWN TO SPEAK WITH THE PATIENT TODAY BUT THEY WOULD SET EVERYTHING UP AND CALL HER AT HOME. THE PATIENT WAS NOTIFIED.
--- NOTE | 2020-04-07 12:56 | NUR ---
Faxed home health order along with face to face and clinical to [facility]
== END 2020-04-07 13:54 | disposition home or self-care (01) ==
LOC: ED 16:08 → EDHOLD 18:21
PROVIDERS: Family Medicine; Internal Medicine; ADMIT Internal Medicine; ATTEND Internal Medicine
DX: E86.0 Dehydration (principal); N17.0 Acute kidney failure with tubular necrosis; D64.9 Anemia, unspecified; E87.6 Hypokalemia; E43 Unspecified severe protein-calorie malnutrition; E83.41 Hypermagnesemia; C91.10 Chronic lymphocytic leukemia of B-cell type not having achieved remission; D72.829 Elevated white blood cell count, unspecified; E11.9 Type 2 diabetes mellitus without complications; I10 Essential (primary) hypertension; Z20.828 Contact with and (suspected) exposure to other viral communicable diseases

== ENCOUNTER → 2020-05-03 | Outpatient (CLI) | payer OTHER ==
[~2020-05-03] MED LIST changes: +ATORVASTATIN CA20 M1 PO; +BUMETANIDE2 MG PO; +DOXYCYCLINE100 M3 PO; +IMDUR SA60 M1 PO; +LOSARTAN POTASS50 M1 PO; +POTASSIUM CHLO10 ME5 PO; +REPAGLINIDE0.5 M1 PO
[2020-05-03 08:46] LABS: HEMATOCRIT 39.1 % (37.0-47.0); MEAN CELL VOLUME 92.2 fl (81.0-99.0); MEAN CORPUSCULAR HGB 29.2 pg (27.0-31.0); MEAN CORPUSCULAR HGB CONC 31.7 g/dl (33.0-37.0); MEAN PLATELET VOLUME 10.6 fl (9.6-12.3); PLATELET COUNT AUTOMATED 187 10*3/uL (130-400); RED BLOOD COUNT 4.24 10*6/uL (4.10-5.10); WHITE BLOOD COUNT 10.6 10*3/uL (4.8-10.8)
[2020-05-03 09:20] LABS: CHLORIDE 105 mmol/L (98-107); POTASSIUM 3.8 mmol/L (3.5-5.1); SODIUM 140 mmol/L (136-145)
[2020-05-03 09:32] LABS: ALBUMIN 3.9 gm/dl (3.1-4.5); ALKALINE PHOSPHATASE 86 U/L (45-117); BUN 39 mg/dl (7-24); CHOLESTEROL 120 mg/dL (<200); CREATININE 1.42 mg/dL (0.55-1.02); HDL CHOLESTEROL 49 mg/dl (40-60); LDL CHOLESTEROL 47 mg/dL (9-159); SGOT/AST 18 IU/L (3-35); SGPT/ALT 36 U/L (12-78); TOTAL PROTEIN 6.8 gm/dL (6.4-8.2); TRIGLYCERIDES 120 mg/dl (<150); VLDL CHOLESTEROL 24 mg/dL (6-40)
[2020-05-03 10:01] LABS: VITAMIN D, 25-HYDROXY 69.7 ng/mL (30-100)
[2020-05-03 10:22] LABS: ATYPICAL LYMPHS 1 % (0-0); TOTAL CELLS COUNTED 100 #CELLS
[2020-05-03 10:23] LABS: PLATELET SUFFICIENCY NORMAL (NORMAL)
== END | disposition home or self-care (01) ==
LOC: LAB 07:52
PROVIDERS: ATTEND Nurse Practitioner Primary Care
DX: K44.9 Diaphragmatic hernia without obstruction or gangrene (principal); I10 Essential (primary) hypertension; E11.9 Type 2 diabetes mellitus without complications; R79.89 Other specified abnormal findings of blood chemistry; J18.9 Pneumonia, unspecified organism; E55.9 Vitamin D deficiency, unspecified

== ENCOUNTER → 2020-08-12 | Outpatient (CLI) | payer OTHER | END | disposition home or self-care (01) | LOC: US 00:21 | PROVIDERS: ATTEND Nurse Practitioner Primary Care | DX: I70.203 Unspecified atherosclerosis of native arteries of extremities, bilateral legs (principal); R23.0 Cyanosis ==

== ENCOUNTER → 2020-12-03 | Outpatient (CLI) | payer OTHER ==
[2020-12-03 11:14] LABS: ALBUMIN 3.9 gm/dl (3.1-4.5); CREATININE 1.51 mg/dL (0.55-1.02)
== END | disposition home or self-care (01) ==
LOC: LAB 10:30
PROVIDERS: ATTEND Nurse Practitioner Primary Care
DX: M48.04 Spinal stenosis, thoracic region (principal); M41.84 Other forms of scoliosis, thoracic region; E55.9 Vitamin D deficiency, unspecified; M54.6 Pain in thoracic spine; Z78.0 Asymptomatic menopausal state

== ENCOUNTER → 2021-02-04 | Outpatient (CLI) | payer OTHER ==
[2021-02-04 10:16] LABS: ALBUMIN 3.9 gm/dl (3.1-4.5); CREATININE 1.46 mg/dL (0.55-1.02); POTASSIUM 4.1 mmol/L (3.5-5.1); TOTAL PROTEIN 6.9 gm/dL (6.4-8.2)
== END | disposition home or self-care (01) ==
LOC: COVID19 09:27 → LAB 09:27
PROVIDERS: Internal Medicine Endocrinology, Diabetes & Metabolism; ATTEND Nurse Practitioner Family
DX: E11.65 Type 2 diabetes mellitus with hyperglycemia (principal); Z20.822 Contact with and (suspected) exposure to COVID-19

== ENCOUNTER → 2021-02-17 | Outpatient (CLI) | payer OTHER ==
[2021-02-17 12:41] LABS: BASO % 0.4 % (0.0-1.0); EOS # 0.2 10*3/uL (0.0-0.4); EOS % 1.7 % (1.0-4.0); HEMATOCRIT 38.9 % (37.0-47.0); LYMPH # 4.8 10*3/uL (1.3-4.4); LYMPH % 42.2 % (27.0-41.0); MEAN CELL VOLUME 90.5 fl (81.0-99.0); MEAN CORPUSCULAR HGB 29.5 pg (27.0-31.0); MEAN CORPUSCULAR HGB CONC 32.6 g/dl (33.0-37.0); MEAN PLATELET VOLUME 9.6 fl (9.6-12.3); MONO # 0.9 10*3/uL (0.1-1.0); MONO % 7.8 % (3.0-9.0); NEUT # 5.4 10*3/uL (2.3-7.9); NEUT % 47.5 % (47.0-73.0); PLATELET COUNT AUTOMATED 234 10*3/uL (130-400); RED CELL DISTRI WIDTH 13.7 % (0-14.5); WHITE BLOOD COUNT 11.3 10*3/uL (4.8-10.8)
== END | disposition home or self-care (01) ==
LOC: LAB 12:21
PROVIDERS: ATTEND Internal Medicine Hematology & Oncology
DX: C91.10 Chronic lymphocytic leukemia of B-cell type not having achieved remission (principal)

== ENCOUNTER → 2021-03-02 | Outpatient (CLI) | payer OTHER | END | disposition home or self-care (01) | LOC: MAMMO 09:26 | PROVIDERS: ATTEND Nurse Practitioner Women's Health | DX: Z12.31 Encounter for screening mammogram for malignant neoplasm of breast (principal) ==

== ENCOUNTER → 2021-08-31 | Outpatient (CLI) | payer OTHER ==
[2021-08-31 10:43] LABS: BASO # 0.1 10*3/uL (0.0-0.1); BASO % 0.4 % (0.0-1.0); EOS # 0.1 10*3/uL (0.0-0.4); EOS % 0.7 % (1.0-4.0); HEMATOCRIT 38.6 % (37.0-47.0); LYMPH # 6.1 10*3/uL (1.3-4.4); LYMPH % 49.4 % (27.0-41.0); MEAN CELL VOLUME 88.7 fl (81.0-99.0); MEAN CORPUSCULAR HGB CONC 32.6 g/dl (33.0-37.0); MEAN PLATELET VOLUME 10.3 fl (9.6-12.3); MONO # 0.9 10*3/uL (0.1-1.0); MONO % 6.9 % (3.0-9.0); NEUT # 5.2 10*3/uL (2.3-7.9); NEUT % 42.3 % (47.0-73.0); PLATELET COUNT AUTOMATED 253 10*3/uL (130-400); RED BLOOD COUNT 4.35 10*6/uL (4.10-5.10); RED CELL DISTRI WIDTH 13.9 % (0-14.5); WHITE BLOOD COUNT 12.4 10*3/uL (4.8-10.8)
[2021-08-31 10:47] LABS: BILIRUBIN Negative (Negative); BLOOD Negative (Negative); CLARITY Clear (Clear); COLOR Yellow (Yellow); GLUCOSE Negative (Negative); KETONE Negative (Negative); LEUKO ESTERASE 3+ (Negative); NITRITE Negative (Negative); PH 6.5 (4.5-8.0); UROBILINOGEN 0.2 E.U./dl (0.0-1.0)
[2021-08-31 10:55] LABS: CREATININE 1.48 mg/dL (0.55-1.02); POTASSIUM 4.6 mmol/L (3.5-5.1)
[2021-08-31 10:55] LABS: URINE CREATININE RANDOM 37.5 mg/dL
[2021-08-31 11:00] LABS: BACTERIA 3+
[2021-08-31 11:01] LABS: WBC 41-50 wbc/hpf (0-5)
[2021-08-31 11:13] LABS: ATYPICAL LYMPHS 1 % (0-0); BASOPHILS 2 % (0-1); TOTAL CELLS COUNTED 100 #CELLS
[2021-08-31 11:20] LABS: OVALOCYTES FEW; PLATELET SUFFICIENCY NORMAL (NORMAL)
[2021-08-31 11:46] LABS: FERRITIN 36.2 ng/mL (10.0-291.0); VITAMIN D, 25-HYDROXY 63.5 ng/mL (30-100)
== END | disposition home or self-care (01) ==
LOC: LAB 10:10
PROVIDERS: ATTEND Internal Medicine Nephrology
DX: N18.32 Chronic kidney disease, stage 3b (principal); D63.1 Anemia in chronic kidney disease; N25.81 Secondary hyperparathyroidism of renal origin

== ENCOUNTER → 2021-09-07 | Outpatient (CLI) | payer OTHER ==
[2021-09-07 13:38] LABS: BASO # 0.1 10*3/uL (0.0-0.1); BASO % 0.4 % (0.0-1.0); EOS # 0.1 10*3/uL (0.0-0.4); LYMPH # 4.6 10*3/uL (1.3-4.4); MEAN CELL VOLUME 88.7 fl (81.0-99.0); MEAN CORPUSCULAR HGB 29.3 pg (27.0-31.0); MEAN CORPUSCULAR HGB CONC 33.1 g/dl (33.0-37.0); MEAN PLATELET VOLUME 10.2 fl (9.6-12.3); MONO # 0.7 10*3/uL (0.1-1.0); MONO % 6.4 % (3.0-9.0); NEUT # 5.7 10*3/uL (2.3-7.9); NEUT % 50.8 % (47.0-73.0); PLATELET COUNT AUTOMATED 255 10*3/uL (130-400); RED BLOOD COUNT 4.06 10*6/uL (4.10-5.10); RED CELL DISTRI WIDTH 13.7 % (0-14.5); WHITE BLOOD COUNT 11.1 10*3/uL (4.8-10.8)
[2021-09-07 13:56] LABS: CREATININE 1.58 mg/dL (0.55-1.02); POTASSIUM 3.9 mmol/L (3.5-5.1); TOTAL PROTEIN 6.5 gm/dL (6.4-8.2)
[2021-09-08 06:08] LABS: TOTAL PROTEIN, SERUM 5.9 g/dL (6.0-8.5)
[2021-09-08 08:09] LABS: IMMUNOGLOBULIN G, QNT 518 mg/dL (586-1602)
[2021-09-08 13:07] LABS: IMMUNOGLOBULIN M, QNT 19 mg/dL (26-217)
[2021-09-08 15:07] LABS: A/G RATIO 1.8 (0.7-1.7); ALBUMIN 3.8 g/dL (2.9-4.4); ALPHA-1-GLOBULIN 0.2 g/dL (0.0-0.4); ALPHA-2-GLOBULIN 0.8 g/dL (0.4-1.0); BETA GLOBULIN 0.7 g/dL (0.7-1.3); GAMMA GLOBULIN 0.4 g/dL (0.4-1.8); GLOBULIN, TOTAL 2.1 g/dL (2.2-3.9); M-SPIKE Not Observed g/dL (Not Observed)
== END | disposition home or self-care (01) ==
LOC: LAB 13:08
PROVIDERS: ATTEND Internal Medicine Hematology & Oncology
DX: C91.10 Chronic lymphocytic leukemia of B-cell type not having achieved remission (principal)

== ENCOUNTER → 2022-01-05 | Outpatient (CLI) | payer OTHER ==
[~2022-01-05] MED LIST changes: +OZEMPIC1 MG/0.71 SQ
== END | disposition home or self-care (01) ==
LOC: CARD 00:05
PROVIDERS: ATTEND Internal Medicine Cardiovascular Disease
DX: I08.3 Combined rheumatic disorders of mitral, aortic and tricuspid valves (principal); I50.9 Heart failure, unspecified

== ENCOUNTER → 2022-01-06 | Outpatient (CLI) | payer OTHER | END | disposition home or self-care (01) | LOC: CARD 00:31 | PROVIDERS: ATTEND Internal Medicine Cardiovascular Disease | DX: I44.7 Left bundle-branch block, unspecified (principal); I50.9 Heart failure, unspecified; R06.00 Dyspnea, unspecified; R06.02 Shortness of breath ==

== ENCOUNTER → 2022-03-06 | Outpatient (CLI) | payer OTHER | END | disposition home or self-care (01) | LOC: MAMMO 09:00 | PROVIDERS: ATTEND Physician Assistant | DX: Z12.31 Encounter for screening mammogram for malignant neoplasm of breast (principal) ==

== ENCOUNTER → 2022-08-02 | Outpatient (CLI) | payer OTHER ==
[2022-08-02 13:26] LABS: BASO # 0.1 10*3/uL (0.0-0.1); BASO % 0.8 % (0.0-1.0); EOS # 0.2 10*3/uL (0.0-0.4); HEMATOCRIT 38.9 % (37.0-47.0); LYMPH # 2.8 10*3/uL (1.3-4.4); LYMPH % 33.7 % (27.0-41.0); MEAN CELL VOLUME 89.8 fl (81.0-99.0); MEAN CORPUSCULAR HGB 29.3 pg (27.0-31.0); MEAN CORPUSCULAR HGB CONC 32.6 g/dl (33.0-37.0); MEAN PLATELET VOLUME 10.4 fl (9.6-12.3); MONO # 0.9 10*3/uL (0.1-1.0); MONO % 10.2 % (3.0-9.0); NEUT # 4.4 10*3/uL (2.3-7.9); NEUT % 52.9 % (47.0-73.0); PLATELET COUNT AUTOMATED 213 10*3/uL (130-400); RED BLOOD COUNT 4.33 10*6/uL (4.10-5.10); WHITE BLOOD COUNT 8.4 10*3/uL (4.8-10.8)
== END | disposition home or self-care (01) ==
LOC: LAB 12:45
PROVIDERS: ATTEND Internal Medicine Hematology & Oncology
DX: C91.10 Chronic lymphocytic leukemia of B-cell type not having achieved remission (principal)

== ENCOUNTER → 2022-11-20 | Outpatient (CLI) | payer OTHER ==
[2022-11-20 07:57] LABS: BASO # 0.1 10*3/uL (0.0-0.1); BASO % 0.8 % (0.0-1.0); EOS # 0.2 10*3/uL (0.0-0.4); EOS % 2.7 % (1.0-4.0); HEMATOCRIT 39.6 % (37.0-47.0); LYMPH # 2.5 10*3/uL (1.3-4.4); LYMPH % 31.3 % (27.0-41.0); MEAN CELL VOLUME 90.8 fl (81.0-99.0); MEAN CORPUSCULAR HGB 30.5 pg (27.0-31.0); MEAN CORPUSCULAR HGB CONC 33.6 g/dl (33.0-37.0); MEAN PLATELET VOLUME 9.8 fl (9.6-12.3); MONO # 0.8 10*3/uL (0.1-1.0); MONO % 10.3 % (3.0-9.0); NEUT # 4.3 10*3/uL (2.3-7.9); NEUT % 54.5 % (47.0-73.0); PLATELET COUNT AUTOMATED 202 10*3/uL (130-400); RED BLOOD COUNT 4.36 10*6/uL (4.10-5.10); RED CELL DISTRI WIDTH 13.7 % (0-14.5); WHITE BLOOD COUNT 7.9 10*3/uL (4.8-10.8)
[2022-11-20 08:50] LABS: VITAMIN D, 25-HYDROXY 77.3 ng/mL (30-100)
[2022-11-20 09:00] LABS: POTASSIUM 3.7 mmol/L (3.4-5.1); TOTAL PROTEIN 6.5 gm/dL (6.0-8.0)
[2022-11-20 11:52] LABS: BILIRUBIN Negative (Negative); BLOOD Negative (Negative); CLARITY Clear (Clear); COLOR Yellow (Yellow); GLUCOSE Negative (Negative); KETONE Negative (Negative); LEUKO ESTERASE 2+ (Negative); NITRITE Negative (Negative); PH 6.5 (4.5-8.0); UROBILINOGEN 0.2 E.U./dl (0.0-1.0)
[2022-11-20 12:13] LABS: URINE CREATININE RANDOM 23.24 mg/dL
[2022-11-20 12:15] LABS: URINE CREATININE RANDOM 23.57 mg/dL
[2022-11-20 12:21] LABS: BACTERIA 4+
== END | disposition home or self-care (01) ==
LOC: LAB 01:12
PROVIDERS: Internal Medicine Nephrology; ATTEND Internal Medicine
DX: E11.22 Type 2 diabetes mellitus with diabetic chronic kidney disease (principal); N18.32 Chronic kidney disease, stage 3b; N25.81 Secondary hyperparathyroidism of renal origin; D63.1 Anemia in chronic kidney disease; D50.9 Iron deficiency anemia, unspecified; E78.2 Mixed hyperlipidemia; E55.9 Vitamin D deficiency, unspecified; Z79.899 Other long term (current) drug therapy

== ENCOUNTER → 2023-04-19 | Outpatient (CLI) | payer OTHER | END | disposition home or self-care (01) | LOC: RESCLI 01:01 | PROVIDERS: ATTEND Internal Medicine | DX: I13.0 Hypertensive heart and chronic kidney disease with heart failure and stage 1 through stage 4 chronic kidney disease, or unspecified chronic kidney disease (principal); E11.22 Type 2 diabetes mellitus with diabetic chronic kidney disease; I50.9 Heart failure, unspecified; N18.30 Chronic kidney disease, stage 3 unspecified; D50.9 Iron deficiency anemia, unspecified; E78.2 Mixed hyperlipidemia; E55.9 Vitamin D deficiency, unspecified; Z88.8 Allergy status to other drugs, medicaments and biological substances; Z87.891 Personal history of nicotine dependence; Z98.890 Other specified postprocedural states; Z90.710 Acquired absence of both cervix and uterus; Z79.899 Other long term (current) drug therapy ==

== ENCOUNTER → 2023-04-23 | Outpatient (CLI) | payer OTHER | END | disposition home or self-care (01) | LOC: RAD 01:25 | PROVIDERS: ATTEND Internal Medicine | DX: Z78.0 Asymptomatic menopausal state (principal) ==

== ENCOUNTER → 2023-05-09 | Outpatient (CLI) | payer OTHER | END | disposition home or self-care (01) | LOC: MAMMO 02:34 | PROVIDERS: ATTEND Internal Medicine | DX: Z12.31 Encounter for screening mammogram for malignant neoplasm of breast (principal) ==

== ENCOUNTER → 2023-10-30 | Outpatient (CLI) | payer MEDICARE ==
[2023-10-30 14:13] LABS: BASO % 0.6 % (0.0-1.0); EOS # 0.1 10*3/uL (0.0-0.4); EOS % 1.7 % (1.0-4.0); HEMATOCRIT 39.9 % (37.0-47.0); LYMPH # 1.8 10*3/uL (1.3-4.4); LYMPH % 27.2 % (27.0-41.0); MEAN CELL VOLUME 91.9 fl (81.0-99.0); MEAN CORPUSCULAR HGB 29.5 pg (27.0-31.0); MEAN CORPUSCULAR HGB CONC 32.1 g/dl (33.0-37.0); MONO # 0.5 10*3/uL (0.1-1.0); MONO % 8.2 % (3.0-9.0); NEUT % 62.1 % (47.0-73.0); PLATELET COUNT AUTOMATED 186 10*3/uL (130-400); RED BLOOD COUNT 4.34 10*6/uL (4.10-5.10); RED CELL DISTRI WIDTH 13.6 % (0-14.5); WHITE BLOOD COUNT 6.5 10*3/uL (4.8-10.8)
[2023-10-30 14:39] LABS: POTASSIUM 3.7 mmol/L (3.4-5.1); TOTAL PROTEIN 6.2 gm/dL (6.0-8.0)
== END | disposition home or self-care (01) ==
LOC: LAB 13:54
PROVIDERS: ATTEND Internal Medicine Cardiovascular Disease
DX: I11.0 Hypertensive heart disease with heart failure (principal); I50.33 Acute on chronic diastolic (congestive) heart failure; E08.21 Diabetes mellitus due to underlying condition with diabetic nephropathy; Z79.4 Long term (current) use of insulin

== ENCOUNTER → 2024-01-16 | Outpatient (CLI) | payer MEDICARE ==
[2024-01-16 11:55] LABS: BASO # 0.1 10*3/uL (0.0-0.1); BASO % 0.8 % (0.0-1.0); EOS # 0.2 10*3/uL (0.0-0.4); EOS % 2.7 % (1.0-4.0); HEMATOCRIT 41.1 % (37.0-47.0); LYMPH # 2.2 10*3/uL (1.3-4.4); LYMPH % 29.7 % (27.0-41.0); MEAN CELL VOLUME 92.2 fl (81.0-99.0); MEAN CORPUSCULAR HGB 29.6 pg (27.0-31.0); MEAN CORPUSCULAR HGB CONC 32.1 g/dl (33.0-37.0); MEAN PLATELET VOLUME 10.4 fl (9.6-12.3); MONO # 0.7 10*3/uL (0.1-1.0); MONO % 8.9 % (3.0-9.0); NEUT # 4.2 10*3/uL (2.3-7.9); NEUT % 57.5 % (47.0-73.0); PLATELET COUNT AUTOMATED 219 10*3/uL (130-400); RED BLOOD COUNT 4.46 10*6/uL (4.10-5.10); RED CELL DISTRI WIDTH 14.5 % (0-14.5); WHITE BLOOD COUNT 7.3 10*3/uL (4.8-10.8)
[2024-01-16 12:05] LABS: URINE CREATININE RANDOM 27.97 mg/dL
[2024-01-16 12:37] LABS: POTASSIUM 3.5 mmol/L (3.4-5.1)
[2024-01-16 12:39] LABS: VITAMIN D, 25-HYDROXY 80.2 ng/mL (30-100)
[2024-01-16 12:51] LABS: BILIRUBIN Negative (Negative); BLOOD Negative (Negative); CLARITY Clear (Clear); COLOR Yellow (Yellow); GLUCOSE Negative (Negative); KETONE Negative (Negative); LEUKO ESTERASE 2+ (Negative); NITRITE Negative (Negative); PH 6.5 (4.5-8.0); UROBILINOGEN 0.2 E.U./dl (0.0-1.0)
[2024-01-16 13:28] LABS: BACTERIA 3+
== END | disposition home or self-care (01) ==
LOC: LAB 11:12
PROVIDERS: ATTEND Internal Medicine Nephrology
DX: N25.81 Secondary hyperparathyroidism of renal origin (principal); N18.30 Chronic kidney disease, stage 3 unspecified; D63.1 Anemia in chronic kidney disease

== ENCOUNTER 2024-03-24 12:27 | Emergency (ER) | payer OTHER, MEDICARE ==
[~2024-03-24] VITALS: Wt 83.9 kg
[2024-03-24] MEDS ORDERED: ACETAMINOPHEN 325 MG TAB PO ONE (12:45)
== END 2024-03-24 14:03 | disposition home or self-care (01) ==
LOC: ED 12:27
DX: S16.1XXA Strain of muscle, fascia and tendon at neck level, initial encounter (principal); M25.512 Pain in left shoulder; M25.511 Pain in right shoulder; I11.0 Hypertensive heart disease with heart failure; I50.9 Heart failure, unspecified; E11.9 Type 2 diabetes mellitus without complications; K21.9 Gastro-esophageal reflux disease without esophagitis; Z90.710 Acquired absence of both cervix and uterus; Z90.49 Acquired absence of other specified parts of digestive tract; Z98.890 Other specified postprocedural states; Z87.891 Personal history of nicotine dependence; V09.9XXA Pedestrian injured in unspecified transport accident, initial encounter; Y93.89 Activity, other specified; Y92.89 Other specified places as the place of occurrence of the external cause; Y99.8 Other external cause status

== ENCOUNTER → 2024-07-16 | Outpatient (CLI) | payer MEDICARE ==
[2024-07-16 14:10] LABS: BASO # 0.1 10*3/uL (0.0-0.1); BASO % 0.6 % (0.0-1.0); EOS # 0.1 10*3/uL (0.0-0.4); EOS % 1.2 % (1.0-4.0); HEMATOCRIT 39.9 % (37.0-47.0); MEAN CELL VOLUME 92.4 fl (81.0-99.0); MEAN CORPUSCULAR HGB 29.6 pg (27.0-31.0); MEAN CORPUSCULAR HGB CONC 32.1 g/dl (33.0-37.0); MEAN PLATELET VOLUME 10.1 fl (9.6-12.3); MONO # 1.1 10*3/uL (0.1-1.0); MONO % 11.6 % (3.0-9.0); NEUT # 5.3 10*3/uL (2.3-7.9); NEUT % 58.4 % (47.0-73.0); PLATELET COUNT AUTOMATED 230 10*3/uL (130-400); RED BLOOD COUNT 4.32 10*6/uL (4.10-5.10); RED CELL DISTRI WIDTH 14.2 % (0-14.5); WHITE BLOOD COUNT 9.1 10*3/uL (4.8-10.8)
[2024-07-16 14:41] LABS: POTASSIUM 4.1 mmol/L (3.4-5.1)
[2024-07-16 14:44] LABS: VITAMIN D, 25-HYDROXY 79.6 ng/mL (30-100)
== END | disposition home or self-care (01) ==
LOC: LAB 13:46
PROVIDERS: ATTEND Internal Medicine Nephrology
DX: N18.30 Chronic kidney disease, stage 3 unspecified (principal); N25.81 Secondary hyperparathyroidism of renal origin; D63.1 Anemia in chronic kidney disease

== ENCOUNTER → 2024-07-18 | Outpatient (CLI) | payer MEDICARE ==
[2024-07-18 10:32] LABS: BILIRUBIN Negative (Negative); BLOOD Negative (Negative); CLARITY Clear (Clear); COLOR Yellow (Yellow); GLUCOSE Negative (Negative); KETONE Negative (Negative); LEUKO ESTERASE 3+ (Negative); NITRITE Negative (Negative); PH 6.5 (4.5-8.0); SPECIFIC GRAVITY <= 1.005 (1.001-1.030); UROBILINOGEN 0.2 E.U./dl (0.0-1.0)
[2024-07-18 10:57] LABS: BACTERIA 4+; WBC 41-50 wbc/hpf (0-5)
== END | disposition home or self-care (01) ==
LOC: LAB 10:02
PROVIDERS: ATTEND Internal Medicine Nephrology
DX: N25.81 Secondary hyperparathyroidism of renal origin (principal); N18.30 Chronic kidney disease, stage 3 unspecified; D63.1 Anemia in chronic kidney disease

== ENCOUNTER → 2024-07-31 | Outpatient (CLI) | payer MEDICARE | END | disposition home or self-care (01) | LOC: MAMMO 02:52 | PROVIDERS: ATTEND Internal Medicine | DX: Z12.31 Encounter for screening mammogram for malignant neoplasm of breast (principal) ==

== ENCOUNTER → 2025-04-23 | Outpatient (CLI) | payer MEDICARE ==
[~2025-04-23] MED LIST changes: +BUMETANIDE0.5 MG PO; +CEPHALEXIN500 M1 PO; +INFANT GAS40 MG/0.6 PO; +LIPITOR40 MG PO
[2025-04-23 15:42] LABS: BASO # 0.1 10*3/uL (0.0-0.1); BASO % 0.7 % (0.0-1.0); EOS # 0.2 10*3/uL (0.0-0.4); EOS % 1.9 % (1.0-4.0); MEAN CELL VOLUME 94.8 fl (81.0-99.0); MEAN CORPUSCULAR HGB 30.4 pg (27.0-31.0); MEAN PLATELET VOLUME 10.1 fl (9.6-12.3); MONO # 0.7 10*3/uL (0.1-1.0); MONO % 8.7 % (3.0-9.0); NEUT # 5.1 10*3/uL (2.3-7.9); NEUT % 60.3 % (47.0-73.0); NUCLEATED RED BLOOD CELL 0.0 % (0.0-0.0); NUCLEATED RED BLOOD CELL 0.0 10*3/uL (0.0-0.0); PLATELET COUNT AUTOMATED 215 10*3/uL (130-400); RED CELL DISTRI WIDTH 13.8 % (0-14.5)
[2025-04-23 16:36] LABS: BUN 55.0 mg/dl (9-23); SGPT/ALT 31.0 U/L (5-49)
== END | disposition home or self-care (01) ==
LOC: LAB 14:59
PROVIDERS: Internal Medicine; ATTEND Internal Medicine Nephrology
DX: N18.32 Chronic kidney disease, stage 3b (principal); N25.81 Secondary hyperparathyroidism of renal origin; E11.22 Type 2 diabetes mellitus with diabetic chronic kidney disease